=== PATIENT | female | born 1985 | race Caucasian/White ===

== ENCOUNTER 2022-02-19 05:32 | Outpatient (CLI) | payer OTHER ==
[~2022-02-19] VITALS: Ht 175 cm; Wt 113.6 kg
[2022-02-20] MEDS ORDERED: LORA10TA7 PO (09:25)
== END 2022-02-20 09:53 ==
LOC: PREOP 05:32
PROVIDERS: ATTEND Obstetrics & Gynecology
DX: Z01.818 Encounter for other preprocedural examination (principal)

== ENCOUNTER 2022-02-26 07:57 | Day surgery (SDC) | payer OTHER ==
[2022-02-26] VITALS (12 sets, daily range): BP systolic 117–159; BP diastolic 59–82
[~2022-02-26] VITALS: Ht 175 cm; Wt 113.6 kg
[~2022-02-26 07:57] MED LIST: LORA10TA7 PO
[2022-02-26] MEDS ORDERED: ceFAZolin INJECTION 1,000 MG VIAL IV ONE (08:15)
[2022-02-26] MEDS ORDERED: metroNIDAZOLE 500MG/100ML IVPB 100 ML IV ONE (08:15)
[2022-02-26] MEDS ORDERED: ceFAZolin INJECTION 2,000 MG in NS (IVPB) 50 ML IV ONE (08:30)
[2022-02-26] MEDS ORDERED: ONDANSETRON 4 MG/2 ML (SDV) Z0FRAN IV ONE (08:30)
[2022-02-26] MEDS ORDERED: FAMOTIDINE 20MG/2ML IV (PEPCID) IV ONE (08:30)
[2022-02-26] MEDS: LACTATED RINGERS 1,000 ML IV PRN ×2 (08:52→11:00)
[2022-02-26 08:59] LABS: HEMATOCRIT 42 % (35-52); HEMOGLOBIN 14.2 g/dL (11.5-16.0); MEAN CORPUSCULAR HEMOGLOBIN 30 pg (25-34); MEAN CORPUSCULAR HGB CONC 34 g/dL (32-36); MEAN CORPUSCULAR VOLUME 87 fL (80-99); MEAN PLATELET VOLUME 8.5 fL (9.0-12.2); PLATELET COUNT 368 10^3/uL (130-400); WHITE BLOOD COUNT 6.2 10^3/uL (4.3-11.0)
--- NOTE | 2022-02-26 09:03 | Progress Note-Pre Operative ---
Pre-Operative Progress Note Date of Available H&P: Feb 26, 2022 Date H&P Reviewed: Feb 26, 2022 Time H&P Reviewed: 09:00 History & Physical: H&P Reviewed, Patient Examed, No changes noted Pre-Operative Diagnosis: 36 yo female with bilateral ovarian masses LAVONNE TEAGUE DO Feb 26, 2022 09:03
[2022-02-26] MEDS ORDERED: IBUPROFEN 600 MG (MOTRIN) TAB PO PRN (09:15)
[2022-02-26] MEDS ORDERED: CEPACOL SORE THROAT-COUGH LOZENGE MM PRN (09:15)
[2022-02-26] MEDS ORDERED: DOCUSATE SODIUM 100 MG (COLACE) CAP PO PRN (09:15)
[2022-02-26] MEDS ORDERED: ANTACID SUSP 30 ML UDC (MYLANTA) PO PRN (09:15)
[2022-02-26] MEDS ORDERED: SIMETHICONE 80 MG (MYLICON) CHEW PO PRN (09:15)
[2022-02-26] MEDS ORDERED: ZOLPIDEM 5 MG (AMBIEN) TAB PO PRN (09:15)
[2022-02-26] MEDS ORDERED: BUPIVACAINE 0.25% 30 ML (SENSORCAINE) VIAL ONE (09:33)
[2022-02-26] MEDS ORDERED: proPOfol 200 MG/20 ML (DIPRIVAN) VIAL IV ONE (09:51)
[2022-02-26] MEDS ORDERED: ONDANSETRON 4 MG/2 ML (SDV) Z0FRAN ONE ×2 (09:51→13:05)
[2022-02-26] MEDS ORDERED: fentaNYL INJ 100 MCG/2 ML AMP ONE ×2 (09:51→12:32)
[2022-02-26] MEDS ORDERED: ROCURONIUM 10 MG/ML 5 ML SYRINGE IV ONE ×2 (09:51→11:32)
[2022-02-26] MEDS ORDERED: MIDAZOLAM 2 MG/2 ML (VERSED) VIAL ONE (09:51)
[2022-02-26] MEDS ORDERED: LIDOCAINE PF 2% 5 ML (XYLOCAINE) VIAL ONE (09:51)
--- NOTE | 2022-02-26 10:10 | Discharge Inst-Women's Service ---
Discharge Inst-Women's Serv Depart Medication/Instructions New, Converted or Re-Newed RX: Transmitted to Pharmacy Problems Reviewed?: Yes Consults/Follow Up Additional Follow Up: Yes Orders/Referrals Dr. Vásquez in 7-10 days and in 8 weeks Activity Activity: Activity as Tolerated Driving Instructions: No Driving for 1 Week NO SMOKING: NO SMOKING Nothing Inside Vagina: No Douching, No [place], No Tampons Diet Discharge Diet: No Restrictions Symptoms to Report to : Bleeding Excessive, Pain Increased, Fever Over 101 Degrees F, Vaginal Bleeding Increase, Questions/Concerns For Any Problems or Questions: Contact Your Physician Skin/Wound Care Infection Signs and Symptoms: Increased Redness, Foul Odor of Wound, Increased Drainage, Skin Itchy or Has a Rash, Increased Swelling, Temperature Above 101 F Operative Area Clean and Dry: Keep Incision Clean/Dry Stitches/Leonarda/Dermabond: Dermabond, Care of Stitches Bathing Instructions: LAVONNE Dobbins DO Feb 26, 2022 10:10
[2022-02-26] MEDS ORDERED: TRM50T PO (10:11)
[2022-02-26] MEDS ORDERED: DOCU100C37 PO (10:11)
[2022-02-26] MEDS ORDERED: SIME80TA16 PO (10:11)
[2022-02-26] MEDS ORDERED: IBUP-844 PO (10:11)
[2022-02-26] MEDS ORDERED: HYDROmorphone 2 MG/ML VIAL (DILAUDID) ONE (10:44)
[2022-02-26] MEDS ORDERED: GLYCOPYRROLATE 0.2 MG/ML (ROBINUL) 2 ML VIAL ONE (11:29)
[2022-02-26] MEDS ORDERED: SEVOFLURANE (ULTANE) 15 ML INHAL SOLN ONE (11:32)
[2022-02-26] MEDS ORDERED: KETOROLAC 30 MG/ML VIAL ONE (12:26)
[2022-02-26] MEDS: KETOROLAC 30 MG/ML VIAL IVP PRN ×2 (12:27→18:22)
[2022-02-26] MEDS ORDERED: ONDANSETRON 4 MG/2 ML (SDV) Z0FRAN IVP PRN (12:45)
[2022-02-26] MEDS ORDERED: fentaNYL INJ 100 MCG/2 ML AMP IVP ONE (12:45)
[2022-02-26] MEDS: LACTATED RINGERS 1,000 ML IV SCH ×2 (13:08→18:06)
[2022-02-26] MEDS: ONDANSETRON 4 MG/2 ML (SDV) Z0FRAN IV PRN ×2 (13:09→15:31)
[2022-02-26] MEDS ORDERED: SCOPOLAMINE 1.5 MG (TRANSDERM-SCOP) PATCH TD NR (15:45)
--- NOTE | 2022-02-26 17:42 | OPERATIVE REPORT ---
DATE OF SERVICE: PREOPERATIVE DIAGNOSIS: A 36-year-old female with bilateral ovarian solid and cystic tumors. POSTOPERATIVE DIAGNOSIS: A 36-year-old female with bilateral ovarian solid and cystic tumors. PROCEDURES PERFORMED: Robotic-assisted total laparoscopic hysterectomy with bilateral salpingo-oophorectomy. SURGEON: Nirmal Teague DO. COMPOSITION ROLL MAKER AND CUTTER: Karyn Wilson DNP, was necessary for manipulation and retraction throughout the procedure. ANESTHESIA: General endotracheal. ESTIMATED BLOOD LOSS: Minimal. URINE OUTPUT: 500 mL clear at the end of the procedure. FLUIDS: 1200 mL lactated Ringer's solution. FINDINGS: Grossly normal appearing external female genitalia, grossly normal-appearing uterus and bilateral fallopian tubes. Bilateral ovaries are grossly enlarged with an evident solid and cystic component of both that is approximately 8 to 10 cm in diameter. The weight of the entire specimen itself was greater than 250 grams in aggregate. SPECIMEN SENT: Bilateral fallopian tubes, ovaries, uterus, cervix, and pelvic washings. INDICATIONS FOR PROCEDURE: This 36-year-old female is a patient, who had sought care in my office as a consultation due to the findings of these pelvic masses on CAT scan, which were noted after the patient complained of some chronic pelvic pain that was given her some discomfort. There were changes in size from her imaging until her operative time. They were approximately 7 to 6 cm the larger one with the smaller one being 3 to 4 cm without any change significantly by the time she admitted to surgery. I discussed with the patient need for removal of these structures. Due to the size and the potential for malignancy, I discussed needed to have this removed intact. This would either involve a laparotomy incision and removal of just the ovaries with uterine preservation or removal of the ovaries, uterus and fallopian tubes. This could be done minimally invasive Laparoscopic robotic-assisted. The risk of this procedure was discussed with the patient in detail, including the possible need for laparotomy, risk of bleeding, infection, damaging surrounding structures including, but not limited to bowel, bladder, ureter, kidneys, possible need for reoperation, postoperative complications that may occur, recovery timeframe, risk from anesthesia, and even were all discussed with the patient. After all of her questions were answered and consent was obtained in the preoperative area, the patient was taken to the operating room. OPERATIVE REPORT IN DETAIL: Once in the operating room, general anesthesia was found to be adequate, she was placed in a dorsal lithotomy position, and prepped and draped in a normal sterile fashion. A timeout was performed. A Carmona catheter was placed using a sterile technique. A weighted speculum inserted to the patient's vagina. Right angle retractor was used to visualize the cervix. It was grasped at 12 o'clock position using a 0 Vicryl suture, which was placed through the anterior lip of the cervix. I then gently sounded the uterine cavity, depth was found to be 8 cm. I selected an 8 cm Maeve uterine manipulator tip and a 4 cm colpotomy ring. The manipulator tip was advanced into the uterus, where the balloon was deployed. Colpotomy ring was advanced into the vagina and around the vaginal fornix. An excellent bimanual manipulation appreciated after doing this. I then performed a change of gloves and turned my attention to the abdomen, where subcostally at the midclavicular line on the left side, I introduced the Veress needle until intraperitoneal placement was confirmed using saline drop test. An opening pressure of 6 mmHg was noted. I proceeded with insufflation using CO2 gas and maximum pressure of 15 mmHg, at which point, I made a supraumbilical incision. This was an 8 mm incision with a knife and directed a blunt laparoscopic da Ole camera trocar through the incision until intraperitoneal placement was confirmed using the da Ole laparoscope. There was no evidence of damage from entry site. A brief scan of the lower and upper abdominal anatomy appears to have no gross damage upon entry. The Veress needle was removed under direct visualization of the laparoscope. I then had the patient placed in a steep Trendelenburg and we were able to visualize all my pelvic anatomy as defined in my findings above. I placed two lateral trocars. They were approximately 8 cm lateral to my supraumbilical trocar and they were about 8 mm incisions. Once both these trocars were in place, I bring in the da Ole robot and docked in appropriate fashion placing the vessel sealer in the left hand and monopolar marv on the right hand. I performed the following dissection bilaterally. Starting at the infundibulopelvic ligament, I sealed and transected this using the vessel sealer. I then grasped the round ligament, which I sealed and transected using vessel sealer. I then grasped the broad ligament, which I sealed and transected using vessel sealer. I the ovaries away from the uterus by going across the uteroovarian ligament and sealing and transecting this using the vessel sealer and placed the ovaries to the side to be removed separately after the hysterectomy was performed. I then continued with the hysterectomy. I the anterior and posterior leaves of the broad ligament. The anterior leaflet was taken around the anterior vaginal fornix and posterior leaflet was taken around the posterior vaginal fornix. This allows me to skeletonize the uterine vessels laterally, which I sealed and transected using vessel sealer. I then created a colpotomy at 12 o'clock position using monopolar marv and took this circumferentially around the vaginal fornix amputating the cervix away from the vagina. The entire specimen was then removed through the vagina. I then removed one by one both of these ovaries using an Endopouch bag through the vagina. Once they are removed and this was done with them being intact, I then proceeded with closing the vaginal cuff using 2-0 V-Loc in a running fashion, after which no active bleeding noted from any of my dissection planes. Prior to performing the hysterectomy and removal of the ovaries, I did perform pelvic washings. After closing the vaginal cuff, I copiously irrigated the pelvis using normal saline, after which there was noted to be no active bleeding from any of my dissection planes. I then undocked the da Ole robot and proceeded with remainder of the case laparoscopically. I then covered the surgical planes of dissection using Surgiflo hemostatic agent. I then had the patient taken out of steep Trendelenburg and removed the lateral trocars under direct visualization of laparoscope. The supraumbilical trocar was left in place to release the remainder of the insufflation and introduced 10 mL of 0.25% Marcaine in the peritoneal cavity for postoperative pain management. I then removed this trocar as well. A 4-0 Monocryl in an interrupted subcuticular stitch was used to close all three incisions and Band-Aids were placed over the incisions as well. Carmona catheter was left in place. The patient tolerated the procedure well and was sent to recovery area in stable condition. Lap and sponge counts were correct at the end of the procedure. Instrument counts were correct as well. Two grams of Ancef and 500 mg of Flagyl were given preoperatively for infection prophylaxis. Job ID: [id number] DocumentID: [id number] Dictated Date: 02/26/2022 12:46:48 Magazine Designer Date: 02/26/2022 17:41:56 Dictated By: NIRMAL TEAGUE DO
[2022-02-26] MEDS ORDERED: BETHANECHOL 10 MG (URECHOLINE) TAB PO NR (19:15)
--- NOTE | 2022-02-27 13:21 | Anesthesia-General Post-Op ---
General Patient Condition Mental Status/LOC: Same as Preop Cardiovascular: Satisfactory Nausea/Vomiting: Absent Respiratory: Satisfactory Pain: Controlled Complications: Absent Post Op Complications Complications None Follow Up Care/Instructions Patient Instructions None needed. Anesthesia/Patient Condition Patient Condition Patient is doing well, no complaints, stable vital signs, no apparent adverse anesthesia problems. No complications reported per nursing. CESAR DIEHL CRNA Feb 27, 2022 13:21
[2022-03-01] MEDS ORDERED: SCOPOLAMINE PATCH REMOVAL TP NR (15:45)
== END 2022-02-26 20:30 | disposition home or self-care (01) ==
LOC: SDC 07:57 → WS 12:52 → SDC 20:30
PROVIDERS: ATTEND Obstetrics & Gynecology
DX: D27.1 Benign neoplasm of left ovary (principal); D27.0 Benign neoplasm of right ovary; N83.8 Other noninflammatory disorders of ovary, fallopian tube and broad ligament
CPT/HCPCS: 36415; 84703; 85027; 86850; 86900; 86901; 87081; 94664; 94760